=== PATIENT | male | born 1995 | race Caucasian/White ===

== ENCOUNTER 2021-07-04 23:34 | Emergency (ER) | payer OTHER ==
[2021-07-05] MEDS ORDERED: Ketorolac Tromethamine 30 MG/ML VIAL ONE (00:33)
[2021-07-05] MEDS ORDERED: Diazepam 10 MG/2 ML SYRINGE ONE (00:33)
[2021-07-05 00:43] LABS: #Eosinphils 0.1 10x3/uL (0.0-0.5); #Monocytes 0.5 10x3/uL (0.0-1.1); #Neutrophils 2.4 10x3/uL (1.5-8.4); %Basophils 0.8 % (0.0-2.0); %Eosinophils 2.5 % (0.0-6.0); %Lymphocytes 40.6 % (18.0-47.0); %Monocytes 9.5 % (0.0-10.0); %Neutrophils 46.4 % (40.0-75.0); Hemoglobin 15.9 g/dL (13.5-17.5); Mean Corpuscular HGB CONC 34.9 g/dL (32.0-36.0); Mean Corpuscular Hemoglobin 31.4 pg (27.0-33.0); Mean Corpuscular Volume 89.9 fl (81.2-95.1); Mean Platelet Volume 9.8 fl (7.4-10.4); Platelet Count 258 10x3/uL (150-450); RBC Distribution Width 12.1 % (11.5-14.5); Red Blood Cell (RBC) Count 5.06 10x6/uL (4.32-5.72); White Blood Cell (WBC) Count 5.3 10x3/uL (3.5-10.5)
[2021-07-05 01:02] LABS: ALT (SGPT) 34 U/L (8-55); AST (SGOT) 21 U/L (5-34); Albumin 4.6 g/dL (3.5-5.0); Alkaline Phosphatase 80 U/L (40-110); Anion Gap 15 mmol/L (10-20); BUN (Urea Nitrogen) 17 mg/dL (8.9-20.6); Bilirubin, Total 0.4 mg/dL (0.2-1.2); Calc. Creatinine Clearance 0 mL/min (70-130); Calcium 9.3 mg/dL (7.8-10.44); Carbon Dioxide 24 mmol/L (22-29); Chloride 107 mmol/L (98-107); Globulin 3.1 g/dL (2.4-3.5); Glucose 117 mg/dL (70-105); Protein, Total 7.7 g/dL (6.0-8.3); Sodium 142 mmol/L (136-145)
[2021-07-05] MEDS ORDERED: Ondansetron PF 4 MG/2 ML Vial ONE (01:31)
[2021-07-05] MEDS ORDERED: Morphine 4 MG/ML VIAL ONE (01:31)
[2021-07-05 01:49] LABS: Bilirubin Neg (Negative); Blood, Urine 50 (Negative); Clarity Clear (Clear); Glucose, Urine (Dipstick) Normal (Negative); Ketone, Urine Negative (Negative); Leukocyte Negative (Negative); Nitrite Negative (Negative); Protein, Urine (Dipstick) 30 mg/dl (Neg-Trace)
[2021-07-05 02:03] LABS: Bacteria/HPF Rare-Few HPF (None Seen); Mucous/LPF 1+ LPF (<2+); Squamous Epithelial 0-3 HPF (0-3)
== END 2021-07-05 02:03 | disposition home or self-care (01) ==
LOC: CSHERS 23:34
DX: R07.9 Chest pain, unspecified (principal)
CPT/HCPCS: 71045; 80053; 81003; 81015; 84484; 85025; 85379; 93005; 96374; 96375; J1885; J2270; J2405; J3360